=== PATIENT | female | born 1965 | race Caucasian/White ===

== ENCOUNTER 2019-10-21 04:26 | Emergency (ER) | payer BC, OTHER ==
[2019-10-21] MEDS ORDERED: Ondansetron 4 MG/2 ML SDV ONE (04:53)
[2019-10-21] MEDS ORDERED: Ondansetron 4 MG/2 ML SDV IVPUSH STA (05:09)
[2019-10-21] MEDS ORDERED: HYDROmorphone 0.5 MG/0.5 ML Syringe IVPUSH ONE (05:27)
[2019-10-21] MEDS ORDERED: Tamsulosin 0.4 MG Cap.ER PO ONE (06:44)
[2019-10-21] MEDS ORDERED: Ibuprofen 600 MG Tab PO ONE (06:44)
--- NOTE | 2019-10-21 06:50 | EDM.PDOC ---
ED HPI GENERAL MEDICAL PROBLEM - General Chief Complaint: Flank Pain Stated Complaint: EXTREME LEFT SIDE BACK AND STOMACH PAIN Time Seen by Provider: 10/21/19 06:20 Source of Information: Reports: Patient, Family () History Limitations: Reports: No Limitations - History of Present Illness INITIAL COMMENTS - FREE TEXT/NARRATIVE: Mrs. Tamez is a very pleasant 54-year-old woman with a past medical history significant for hypertension and anxiety, who states that she was woken around 02:30 with left lower quadrant abdominal pain. About 15 to 20 minutes later, she developed left flank pain. She has not identified any modifiers to the pain. She has had nausea and vomiting. No recent fever. No recent urinary symptoms. No recent constipation or diarrhea. No recent illness. The patient tried a heating pad, without relief. No other getf-tyz-ivoallv or home remedies were attempted. Here in the ED, the patient is found to be hemodynamically stable, afebrile, saturating 99% on room air. The patient's PCP is Tamara Brunson NP. She received an influenza vaccine this season. Left Flank Pain Score (Numeric/FACES): 10 - Related Data Allergies Allergy/AdvReac Type Severity Reaction Status Date / Time No Known Allergies Allergy Verified 10/21/19 04:43 Home Meds: Home Meds Acetaminophen/HYDROcodone [Warrior 325-5 MG] 1 - 2 tab PO Q6H PRN #24 tablet 10/20 [Rx] Ondansetron [Zofran ODT] 1 tab PO Q8H PRN #10 tab.dis 10/21/19 [Rx] Tamsulosin HCl [Flomax] 1 cap PO QAM PRN #10 cap.er.24h 10/21/19 [Rx] Past Medical History Cardiovascular History: Reports: Hypertension Gastrointestinal History: Reports: Diverticulosis (by CT scan) Psychiatric History: Reports: Anxiety (untreated) - Past Surgical History HEENT Surgical History: Reports: Oral Surgery (wisdom teeth extraction) GI Surgical History: Reports: Cholecystectomy (around 2005) Female Surgical History: Reports: Hysterectomy (partial) Neurological Surgical History: Reports: Lumbar Spine (fusion) Musculoskeletal Surgical History: Reports: ORIF (right ankle, with subsequent removal of hardware), Shoulder Surgery (right, arthroscopic) Social & Family History - Tobacco Use Smoking Status *Q: Never Smoker - Alcohol Use Alcohol Use History: Yes Alcohol Use Frequency: Socially - Recreational Drug Use Recreational Drug Use: No - Living Situation & Occupation Living situation: Reports: , with Spouse 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 ED EXAM, RENAL/ - Physical Exam Exam: See Below Exam Limited By: No Limitations General Appearance: Alert, WD/WN, No Apparent Distress Eye Exam: Bilateral Eye: EOMI, Normal Inspection Ears: Normal External Exam, Hearing Grossly Normal Nose: Normal Inspection Throat/Mouth: Normal Inspection, Normal Lips, Normal Voice, No Airway Compromise Head: Atraumatic, Normocephalic Neck: Normal Inspection, Full Range of Motion Respiratory/Chest: No Respiratory Distress, Lungs Clear, Normal Breath Sounds, No Accessory Muscle Use Cardiovascular: Normal Peripheral Pulses, Regular Rate, Rhythm, No Edema, No Gallop, No JVD, No Murmur, No Rub GI/Abdominal: Normal Bowel Sounds, Soft, Non-Tender (including the LLQ), No Organomegaly, No Distention, No Abnormal Bruit, No Mass (Female) Exam: Deferred Rectal (Female) Exam: Deferred Back Exam: Normal Inspection, Full Range of Motion. No: CVA Tenderness (L), CVA Tenderness (R) Extremities: Normal Inspection, Normal Range of Motion, No Pedal Edema, Normal Capillary Refill Neurological: Alert, Oriented, Normal Cognition, No Motor/Sensory Deficits Psychiatric: Normal Affect Skin Exam: Warm, Dry, Intact, Normal Color, No Rash Course - Vital Signs Last Recorded V/S: Last Vital Signs Temp 36.4 C 10/21/19 04:41 Pulse 56 L 10/21/19 04:41 Resp 18 10/21/19 04:41 BP 146/86 H 10/21/19 04:41 Pulse Ox 99 10/21/19 04:41 - Orders/Labs/Meds Labs: Laboratory Tests 10/21/19 10/21/19 10/21/19 Range/Units 05:00 05:24 05:34 WBC 8.13 (3.98-10.04) K/mm3 RBC 4.88 (3.98-5.22) M/mm3 Hgb 14.8 (11.2-15.7) gm/dl Hct 45.0 H (34.1-44.9) % MCV 92.2 (79.4-94.8) fl MCH 30.3 (25.6-32.2) pg MCHC 32.9 (32.2-35.5) g/dl RDW Std Deviation 43.2 (36.4-46.3) fL Plt Count 260 (182-369) K/mm3 MPV 8.9 L (9.4-12.3) fl Neut % (Auto) 77.4 H (34.0-71.1) % Lymph % (Auto) 16.9 L (19.3-51.7) % Lewis % (Auto) 3.6 L (4.7-12.5) % Eos % (Auto) 1.5 (0.7-5.8) Baso % (Auto) 0.4 (0.1-1.2) % Neut # (Auto) 6.30 H (1.56-6.13) K/mm3 Lymph # (Auto) 1.37 (1.18-3.74) K/mm3 Lewis # (Auto) 0.29 (0.24-0.36) K/mm3 Eos # (Auto) 0.12 (0.04-0.36) K/mm3 Baso # (Auto) 0.03 (0.01-0.08) K/mm3 Sodium 147 H (136-145) mEq/L Potassium 3.5 (3.5-5.1) mEq/L Chloride 109 H (98-107) mEq/L Carbon Dioxide 24 (21-32) mEq/L Anion Gap 17.5 H (5-15) BUN 22 H (7-18) mg/dL Creatinine 1.0 (0.55-1.02) mg/dL Est Cr Clr Drug Dosing TNP Estimated GFR (MDRD) 58 (>60) mL/min BUN/Creatinine Ratio 22.0 H (14-18) Glucose 145 H (74-106) mg/dL Calcium 9.0 (8.5-10.1) mg/dL Total Bilirubin 0.5 (0.2-1.0) mg/dL AST 25 (15-37) U/L ALT 30 (14-59) U/L Alkaline Phosphatase 54 (46-116) U/L Total Protein 7.1 (6.4-8.2) g/dl Albumin 4.1 (3.4-5.0) g/dl Globulin 3.0 gm/dL Albumin/Globulin Ratio 1.4 (1-2) Urine Color Yellow (Yellow) Urine Appearance Cloudy H (Clear) Urine pH 6.5 (5.0-8.0) Ur Specific [place] > or = 1.030 (1.005-1.030) Urine Protein 1+ H (Negative) Urine Glucose (UA) Negative (Negative) Urine Ketones Trace H (Negative) Urine Occult Blood 3+ H (Negative) Urine Nitrite Negative (Negative) Urine Bilirubin Negative (Negative) Urine Urobilinogen 0.2 (0.2-1.0) Ur Leukocyte Esterase Negative (Negative) Urine RBC 75-100 H (0-5) /hpf Urine WBC Not seen (0-5) /hpf Ur Squamous Epith Cells 0-5 (0-5) /hpf Urine Bacteria Rare (FEW) /hpf Urine Mucus Rare (FEW) /hpf Meds: Medications Discontinued Medications Generic Name Dose Route Start Last Admin Trade Name Freq PRN Reason Stop Dose Admin Hydromorphone HCl 0.5 mg 10/21/19 05:27 10/21/19 05:35 Dilaudid IVPUSH 10/21/19 05:28 0.5 mg ONETIME ONE Administration Ibuprofen 600 mg 10/21/19 06:44 10/21/19 07:07 Motrin PO 10/21/19 06:45 600 mg ONETIME ONE Administration Ondansetron HCl Confirm 10/21/19 04:53 10/21/19 05:10 Zofran Administered 10/21/19 04:54 Not Given Dose 4 mg .ROUTE .STK-MED ONE Ondansetron HCl 4 mg 10/21/19 05:09 10/21/19 05:10 Zofran IVPUSH 10/21/19 05:10 4 mg ONETIME STA Administration Tamsulosin HCl 0.4 mg 10/21/19 06:44 10/21/19 07:07 Flomax PO 10/21/19 06:45 0.4 mg ONETIME ONE Administration - Re-Assessments/Exams Free Text/Narrative Re-Assessment/Exam: 10/21/19 06:45 The patient's nurse ordered a CBC, CMP, urinalysis, and CT scan of the abdomen and pelvis without contrast. The CBC is remarkable for a Hct slightly elevated at 45.0, with a Hgb normal at 14.8. The remainder of her CBC is unremarkable. Her CMP is remarkable for sodium slightly elevated at 147, and anion gap mildly elevated at 17.5, but with a bicarbonate normal at 24, a BUN mildly elevated at 22, but with a Cr normal at 1.0, and a blood glucose mildly elevated at 145, with the remainder of her CMP being unremarkable. Her urinalysis is remarkable for body appearance, 3+ occult blood with 75-100 RBCs, leukocyte esterase negative with 0 WBCs, nitrite negative with rare bacteria, and 0-[address] of the abdomen and pelvis without contrast as read by [facility] as: 1. LEFT nephrolithiasis. 4 mm LEFT proximal ureterolith causes mild-to- moderate LEFT hydroureteronephrosis. 2. No CT findings of acute appendicitis. 3. Colonic diverticulosis without CT findings of acute diverticulitis. 4. Air within the bladder dome. Correlation for recent instrumentation/ catheterization. 5. Additional nonemergent CT findings above. As above, the patient's symptoms appear to be due to a 4 mm left ureterolith. In addition to the IV Dilaudid and IV Zofran that she has already received, I will start her on oral Flomax and oral ibuprofen. I will discharge her home with prescriptions for Warrior, Flomax, and Zofran, along with a urine strainer. I will refer her to a Urologist in the event that her symptoms do not improve within the next 1 to 2 weeks. Departure - Departure Time of Disposition: 06:49 Disposition: Home, Self-Care 01 Condition: Good Clinical Impression: Ureterolithiasis - Discharge Information *PRESCRIPTION DRUG MONITORING PROGRAM REVIEWED*: Not Applicable *COPY OF PRESCRIPTION DRUG MONITORING REPORT IN PATIENT HELLEN: Not Applicable Prescriptions: Acetaminophen/HYDROcodone [Warrior 325-5 MG] 1 - 2 tab PO Q6H PRN #24 tablet PRN Reason: Pain (Severe 7-10) Ondansetron [Zofran ODT] 1 tab PO Q8H PRN #10 tab.dis PRN Reason: Nausea/Vomiting Tamsulosin HCl [Flomax] 1 cap PO QAM PRN #10 cap.er.24h PRN Reason: Pain Instructions: Kidney Stones, [id number] Referrals: Tamara Brunson ELECTRONIC TEST TECHNICIAN [Primary Care Provider] - Dakotah Jose MD [Ordering Only Provider] - Forms: ED Department Discharge Additional Instructions: You were seen in the emergency room after developing lower left abdominal pain that spread to your lower left back, along with nausea and vomiting. Work-up in the ER included blood work, a urinalysis, and a CT scan of your abdomen and pelvis without contrast. Your blood work and urinalysis were unremarkable, however, the CT scan of your abdomen and pelvis confirmed that you have a 4 mm stone in your left ureter. Based on the size and location of the stone, you will most likely pass this stone on your own. We recommend that you take [id number] ibuprofen, 3 tablets (600 mg) every 8 hours, [id number]. You may take 1 to 2 tablets of the opioid pain reliever Warrior up to every 6 hours, as needed for pain not relieved by ibuprofen. If you take Warrior, do not drive for 12 hours after taking. Warrior may cause constipation, so consider taking a stool softener. Take 1 tablet of the anti-spasm medicine tamsulosin (Flomax) every morning, starting tomorrow morning, 10/22/2019, as needed for pain. Since Warrior may cause nausea, you may dissolve 1 tablet of the anti-nausea medicine Zofran on your tongue up to every 8 hours, as needed for nausea/ vomiting. Stay adequately hydrated. It does not really matter what type of fluid you drink. Strain all of your urine. If you capture the stone, take it to your PCP for analysis. Your symptoms have not improved by 1 to 2 weeks, please follow-up with the Urologist Dr. Dakotah Jose, in [place], for further evaluation. If any other problems, please do not hesitate to return to the ER. Sepsis Event Note - Evaluation Sepsis Screening Result: No Definite Risk - Focused Exam Date Exam was Performed: 10/24/19 Time Exam was Performed: 03:03
--- NOTE | 2019-10-21 07:10 | CT ---
CT abdomen and pelvis Technique: Multiple axial sections were obtained from above the dome of the diaphragm inferiorly through the pubic symphysis. Intravenous and oral contrast not utilized. Study has been performed as a ureteral stone protocol. Comparison: Prior CT abdomen and pelvis study of 12/26/14. Collecting system of the left kidney is dilated. Proximal ureter is dilated. These findings are caused by a 5 mm obstructing stone within the proximal left ureter. No other ureteral calculi are seen. 1 cm calcification noted within the mid left kidney. Uncertain if this is within the collecting system or represents a cortical stone. No other abnormal calcifications are seen within the kidneys. Visualized lung bases show nothing acute. Noncontrast appearance of the liver and spleen shows no discrete abnormality. Adrenal glands show no nodule. Pancreas appears within normal limits. Surgical clips are noted from prior cholecystectomy. Aorta shows no aneurysm. No retroperitoneal adenopathy is seen. Mild increased stool is noted within the colon. Appendix is seen which is normal in size. Diverticuli are seen within the sigmoid colon without inflammatory change of diverticulitis. Bone window settings were reviewed. Mild degenerative change scattered within the spine. Previous surgery at L5-S1 is noted with intervertebral disc spacer and transpedicular screws. No acute osseous finding is appreciated. Small amount of air noted within the bladder. Impression: 1. 5 mm obstructing stone within the proximal left ureter. This causes mild proximal hydronephrosis. 2. 1 cm calcification within the mid left kidney which could represent a nonobstructing stone within the collecting system or a cortical calcification. This finding is stable from prior exam. 3. Mild increased stool within the colon. 4. Small amount of air within the bladder and please correlate if there has been recent instrumentation as an etiology. Diagnostic code #3 Agree with preliminary report issued by [email or web address]) [facility] ([facility] preliminary report dictated on 10/21/19, 7:13 AM Central Time) Study was dictated in MDT
== END 2019-10-21 07:18 | disposition home or self-care (01) ==
LOC: JD.ED 04:26
DX: N13.2 Hydronephrosis with renal and ureteral calculous obstruction (principal); I10 Essential (primary) hypertension; Z90.49 Acquired absence of other specified parts of digestive tract; Z90.710 Acquired absence of both cervix and uterus; Z98.1 Arthrodesis status
CPT/HCPCS: 36415; 74176; 80053; 81001; 85025; 96374; 96375; 99284; A9270; J1170; J2405